=== PATIENT | male | born 1980 | race Caucasian/White ===

== ENCOUNTER 2020-03-10 19:21 | Emergency (ER) | payer OTHER, SELFPAY ==
[2020-03-10 19:34] VITALS: BP 146/91; PULSE 97; RESP 16; TEMP 37.2; O2SAT 99
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
== END 2020-03-10 19:51 | disposition home or self-care (01) ==
PROVIDERS: Emergency Provider Nurse Practitioner; PCP Family Medicine
DX: S76.912A Strain of unspecified muscles, fascia and tendons at thigh level, left thigh, initial encounter (principal); V18.4XXA Pedal cycle driver injured in noncollision transport accident in traffic accident, initial encounter; F17.290 Nicotine dependence, other tobacco product, uncomplicated
CPT/HCPCS: 99212; G0463

== ENCOUNTER 2020-10-26 21:06 | Emergency (ER) | payer OTHER, BC, SELFPAY ==
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
[2020-10-26 21:27] VITALS: BP 123/61; PULSE 78; RESP 17; TEMP 35.7; O2SAT 98
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
--- NOTE | 2020-10-26 21:49 | PC.NURSE ---
Family presented to bedside.
[2020-10-26 21:50] VITALS: BP 128/79; PULSE 82; RESP 18; TEMP 36.7; O2SAT 95
--- NOTE | 2020-10-26 22:10 | PC.NURSE ---
EDMD presented to bedside to update pt and family on poc. All questions and concerns addressed.
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
--- NOTE | 2020-10-26 23:03 | PC.NURSE ---
Splint placed to right hand and pt tolerated well. Prepared for dc home with family.
[2020-10-26 23:04] VITALS: BP 151/87; PULSE 91; RESP 18; TEMP 37.1; O2SAT 96
[2020-10-26 23:06] VITALS: BP 151/87; PULSE 91; RESP 18; TEMP 37.1; O2SAT 96
== END 2020-10-26 23:07 | disposition home or self-care (01) ==
PROVIDERS: Emergency Provider Emergency Medicine; PCP Family Medicine
DX: S62.241A Displaced fracture of shaft of first metacarpal bone, right hand, initial encounter for closed fracture (principal); V86.56XA Driver of dirt bike or motor/cross bike injured in nontraffic accident, initial encounter; F17.290 Nicotine dependence, other tobacco product, uncomplicated
CPT/HCPCS: 29125; 73130; 99284

== ENCOUNTER → 2020-10-29 04:50 | Outpatient (CLI) | payer BC, SELFPAY ==
[2020-10-29 20:06] LABS: SARS-CoV-2 RNA PCR Negative
== END ==
PROVIDERS: PCP Family Medicine; Visit Provider Plastic Surgery
DX: Z01.812 Encounter for preprocedural laboratory examination (principal); Z20.822 Contact with and (suspected) exposure to COVID-19
CPT/HCPCS: C9803; U0003; U0005

== ENCOUNTER 2020-10-31 01:38 | Day surgery (SDC) | payer BC, SELFPAY ==
[2020-10-31] VITALS (11 sets, daily range): BP systolic 123–140; BP diastolic 68–83; PULSE 56–84; RESP 13–20; TEMP 36.3; O2SAT 91–100
--- NOTE | ~2020-10-31 | XR_ITS ---
EXAMINATION: XR surgery orthopedic EXAM DATE: 10/31/2020 11:53 INDICATION: RT 1ST digit ORIF. TECHNIQUE: Fluoroscopy used during XR surgery orthopedic performed by Dr. Migel Monae MD. Radi ologist was not present for the imaging or procedure. Total fluoroscopic time of 222 seconds. The D AP for this procedure was 0.15 mGym2. A total of 8 images sent to PACS from the exam. Correlation is made to right hand x-ray 10/26/2020. FINDINGS: Images demonstrate reduction in the right 1st metacarpal shaft fractures displacement, and surgical pinning of this to the carpal bones. Correlate with procedure note. IMPRESSION: Fluoroscopy used during right 1st metacarpal ORIF. Reviewed, dictated and finalized at location A.
--- NOTE | 2020-10-31 07:19 | WPDHPUPDATE1 ---
History and Physical Update Update Date/Time: 10/31/20 07:19 History and Physical has been reviewed, including an updated exam of the patient. There are NO changes in the patient's condition. Risks, benefits, and alternatives have been discussed and questions answered. Patient agrees to proceed with procedure.
--- NOTE | 2020-10-31 08:38 | WPDANESEPPF ---
Anes - Initial Pre Proc Eval Procedure: Operation Date: 10/31/20 10:30 Proposed Procedures p Open, Possible Closed Reduction And Internal Fixation Of The Right First Metacarpal - Migel Monae MD Date/Time: 10/31/20 08:38 Surgeon: Migel Monae MD Pre Op Diagnosis: Right 1st metacarpal fx Patient Data Age: 40 Gender: M Height: Weight: Allergies Allergy/AdvReac Type Severity Reaction Status Date / Time doxycycline AdvReac Unknown Nausea Verified 10/31/20 09:29 Home Medications Medication Instructions Recorded Confirmed Type hydrocodone-acetaminophen 1 tablet PO Q4-6H PRN 10/31/20 10/31/20 History Patient hx anesthesia problems: none Family hx anesthesia problems: none PMFSH Past Medical History Medical History (System 10/28/20 @ 10:32 by Jocelyne Webb) Healthy adult Social History Social History (System 10/28/20 @ 10:32 by Jocelyne Webb) Smoking status: Current some day smoker Tobacco type: cigars Second hand tobacco smoke exposure: No Alcohol intake: current Substance use: never Living arrangements: with family Gender identity (if verbalized by the patient): Male Spiritual care concerns: No Anes - Eval Final PreProcedure Day of Procedure 10/31/20 08:38 Patient weight: normal Heart: regular rate and rhythm Lungs: clear to auscultation and normal air movement Airway: Mallampati scale class II Neurological: alert and oriented Last oral intake: >/= 8 hours ASA classification: II Emergent: no Anesthetic plan: proceed Anesthesia type and monitoring: general LMA Informed Consent: The patient's anesthetic plan and its attendant risks and benefits were discussed with the patient/family/POA. Questions were solicited and answers provided to the satisfaction of the patient/family/POA.
[2020-10-31] MEDS: LACTATED RINGERS 1,000 ML 30 ML IV CONT ×2 (09:40→11:36)
[2020-10-31] MEDS: ceFAZolin 2 GM/D5W 50 ML 2 GM/50 ML BAG IVPB (10:37)
[2020-10-31] MEDS: LIDO 1%/EPINEPHRINE 1:100,000 50 ML VIAL INFILTRATE (10:54)
--- NOTE | 2020-10-31 11:23 | SUR.OPER ---
c [facility] .045 lot [id number], exp 2024-04-17 x2 right hand thumb x2.
[2020-10-31] MEDS: fentaNYL CITRATE INJ (*CRX) 100 MCG/2 ML VIAL 25 MCG IV PUSH ×5 (12:00→13:42)
--- NOTE | 2020-10-31 12:00 | PM.PROC ---
Procedure Note - Detailed Date of procedure: 10/31/20 Pre-op diagnosis: Right 1st metacarpal fx Post-op diagnosis: same Procedure performed: Closed reduction and internal C-wire fixation of a displaced right 1st metacarpal shaft fracture. Description of procedure: The site was marked on the patient in the holding area. He was taken to the operating room and placed supine on the operating table. A time-out was held and confirmed. He was given general anesthesia with an LMA. The extremity was prepped and draped in usual fashion. No additional markings were made. The site was imaged with the C-arm. The area was infiltrated with 1% lidocaine with epinephrine. A 0.035 in C-wire was placed across the 2 fracture fragments and into the trapezoid. This was imaged in various positions and deemed to be satisfactorily positioned. A 0.045 in 2nd pin was placed more distally and was passed through the same fragments and the same carpal bone. The smaller pin was then removed and a 2nd 0.45 in C-wire was similarly placed in exchange. Multiple images confirmed the satisfactory reduction and pin placement. Pins were bent and cut to be tucked into the subcutaneous tissue. The skin wound, made for burying the pins, was closed with interrupted 5 0 nylon. A soft gauze bandage with Channing wrap to the hand was applied. The discharged from the operating stable condition Anesthesia: GLMA Surgeon: Migel Monae MD Academic Manager: Sinid Estimated blood loss (mL): 5 Tourniquet time (min): 0 Drains: No Packing: No Pathology: none sent Complications: No immediate complications Condition: stable Disposition: same day
[2020-10-31] MEDS: HYDROmorphone HCL INJ (*CRX) 1 MG/ML SYR 0.25 MG IV PUSH ×3 (12:29→12:48)
[2020-10-31] MEDS: oxyCODONE HCL (*CRX) 5 MG TAB IR PO (13:39)
[2020-10-31] MEDS: KETOROLAC 30 MG/ML VIAL (*BKC) IV PUSH (14:14)
--- NOTE | 2020-10-31 14:20 | SUR.PHASEII ---
JESSICA MAKING COPY OF RIGHT HAND PER PT REQUEST.
== END 2020-10-31 14:45 | disposition home or self-care (01) ==
PROVIDERS: PCP Family Medicine; Visit Provider Plastic Surgery
PROC: (CPT 26615; principal; 2020-10-31 10:30)
DX: S62.241A Displaced fracture of shaft of first metacarpal bone, right hand, initial encounter for closed fracture (principal); V19.9XXA Pedal cyclist (driver) (passenger) injured in unspecified traffic accident, initial encounter
CPT/HCPCS: 26615; A9270; C1713; J0690; J1100; J1170; J1885; J2250; J2405; J2704; J3010; J7120

== ENCOUNTER 2020-12-06 13:23 | Outpatient (CLI) | payer BC, SELFPAY ==
--- NOTE | ~2020-12-06 | XR_ITS ---
EXAMINATION: XR hand RT min 3V DATE: 12/06/2020 13:41 INDICATION: Fracture of right first metacarpal. TECHNIQUE: 3 views of right hand were obtained. COMPARISON: Right hand radiographs 10/26/2020, 10/31/2020 FINDINGS: There is an oblique fracture of proximal aspect of first metacarpal in near-anatomic alignm ent with fixation with 2 wires. There is some early callus formation. Joint spaces are normal. IMPRESSION: 1. Healing oblique fracture of first metacarpal with fixation. Reviewed, dictated and finalized at location A.
== END 2020-12-06 13:24 | disposition home or self-care (01) ==
PROVIDERS: PCP Family Medicine; Visit Provider Plastic Surgery
DX: S62.241D Displaced fracture of shaft of first metacarpal bone, right hand, subsequent encounter for fracture with routine healing (principal); X58.XXXD Exposure to other specified factors, subsequent encounter
CPT/HCPCS: 73130